=== PATIENT | female | born 1975 | race American Indian/Alaskan Native ===

== ENCOUNTER 2019-07-14 16:17 | Emergency (ER) | payer SELFPAY ==
--- NOTE | 2019-07-14 16:28 | Emergency Department Report ---
Blank Doc - Documentation Documentation: This is a 43-year-old female that presents with generalized weakness. This initial assessment/diagnostic orders/clinical plan/treatment(s) is/are subject to change based on patient's health status, clinical progression and re- assessment by fellow clinical providers in the ED. Further treatment and workup at subsequent clinical providers discretion. Patient/guardians urged not to elope from the ED as their condition may be serious if not clinically assessed and managed. Initial orders include: 1- Patient sent to [facility] for further evaluation and treatment 2- labs
[2019-07-14 16:29] VITALS: BP 139/74
[2019-07-14 17:12] LABS: Basophils # (Auto) 0.1 K/mm3 (0.0-0.1); Basophils % (Auto) 0.7 % (0.0-1.8); Eosinophils % (Auto) 0.4 % (0.0-4.3); Hematocrit 23.7 % (30.3-42.9); Hemoglobin 6.8 gm/dl (10.1-14.3); Lymphocytes # (Auto) 1.5 K/mm3 (1.2-5.4); Lymphocytes % (Auto) 18.2 % (13.4-35.0); Mean Corpuscular HGB Conc 29 % (30-34); Monocytes # (Auto) 0.7 K/mm3 (0.0-0.8); Monocytes % (Auto) 8.6 % (0.0-7.3); Platelet Count 425 K/mm3 (140-440); Red Blood Count 4.03 M/mm3 (3.65-5.03); Red Cell Distribution Width 19.1 % (13.2-15.2)
[2019-07-14 17:13] LABS: Mean Corpuscular Volume 59 fl (79-97)
[2019-07-14 17:25] LABS: BUN/Creatinine Ratio 14; Blood Urea Nitrogen 7 mg/dL (7-17); Calcium 9.2 mg/dL (8.4-10.2); Hemolysis Index 0
--- NOTE | 2019-07-14 17:49 | Emergency Department Report ---
- General Chief complaint: Weakness Stated complaint: LOW IRON Time Seen by Provider: 07/14/19 16:27 Source: patient Mode of arrival: Ambulatory Limitations: No Limitations - History of Present Illness Initial comments: 43-year-old female history of anemia presents today with generalized weakness over the last 2 weeks. Patient states she believes her iron is low. She admits that she has not been taking her iron pills. Patient denies chest pain, shortness of breath. Reports intermittent dizziness, lightheadedness. MD Complaint: generalized weakness -: week(s) (2) Location: generalized Severity: moderate Consistency: intermittent Improves with: none Worsens with: none Associated Symptoms: denies: chest pain, fever/chills, headaches, nausea/vomiting, shortness of breath - Related Data Previous Rx's Medication Instructions Recorded Last Taken Type Ferrous Sulfate [Ferrous Sulfate 324 mg PO TID #90 tablet. 07/14/19 Unknown Rx 324 MG] Allergies Allergy/AdvReac Type Severity Reaction Status Date / Time No Known Allergies Allergy Unverified 07/14/19 16:19 ED Review of Systems ROS: Stated complaint: LOW IRON Other details as noted in HPI Comment: All other systems reviewed and negative Constitutional: denies: chills, fever Respiratory: denies: shortness of breath Cardiovascular: denies: chest pain Gastrointestinal: denies: abdominal pain, nausea, vomiting, diarrhea Neurological: denies: headache ED Past Medical Hx - Past Medical History Previous Medical History?: Yes Additional medical history: anemia - Surgical History Past Surgical History?: No - Social History Smoking Status: Never Smoker Substance Use Type: None - Medications Home Medications: Home Medications Medication Instructions Recorded Confirmed Last Taken Type Ferrous Sulfate [Ferrous Sulfate 324 mg PO TID #90 tablet. 07/14/19 Unknown Rx 324 MG] ED Physical Exam - General Limitations: No Limitations General appearance: alert, in no apparent distress - Head Head exam: Present: atraumatic, normocephalic - Eye Eye exam: Present: normal appearance, PERRL, EOMI - ENT ENT exam: Present: mucous membranes moist - Neck Neck exam: Present: normal inspection - Respiratory Respiratory exam: Present: normal lung sounds bilaterally. Absent: respiratory distress - Cardiovascular Cardiovascular Exam: Present: regular rate, normal rhythm - GI/Abdominal GI/Abdominal exam: Present: soft. Absent: distended, tenderness - Extremities Exam Extremities exam: Present: normal inspection - Neurological Exam Neurological exam: Present: alert, oriented X3 - Psychiatric Psychiatric exam: Present: normal affect, normal mood - Skin Skin exam: Present: warm, dry, intact, normal color ED Course Vital Signs 07/14/19 07/14/19 16:27 17:15 Temperature 98.7 F 97.5 F L Pulse Rate 126 H 95 H Respiratory 16 15 Rate Blood Pressure 139/74 O2 Sat by Pulse 100 98 Oximetry ED Medical Decision Making - Lab Data Result diagrams: 07/14/19 16:46 07/14/19 16:38 - Medical Decision Making 43 yo F w/ anemia presents with generalized weakness x 2 weeks. Initial HR at triage was 126, however, it seems that was likely an incorrect reading as pt's HR has been in the 80s and 90s while on the monitor. Had discussion with pt regarding her Hb of 6.8. Pt denies chest pain, SOB. Only generalized weakness and intermittent lightheadedness. Spoke with pt regarding blood transfusion. Pt would like to get back on her iron pills first to see if that helps her symptoms before consenting to a blood transfusion. Will give rx for ferrous sulfate. Critical care attestation.: If time is entered above; I have spent that time in minutes in the direct care of this critically ill patient, excluding procedure time. ED Disposition Clinical Impression: Iron deficiency anemia Disposition: - TO HOME OR SELFCARE Is pt being admited?: No Condition: Stable Instructions: Iron Rich Diet (ED), Iron Deficiency Anemia (ED) Prescriptions: Ferrous Sulfate [Ferrous Sulfate 324 MG] 324 mg PO TID #90 tablet. Referrals: PRIMARY CARE, [Referring] - 3-5 Days [facility] [Provider Group] - 3-5 Days Time of Disposition: 18:00
== END 2019-07-14 18:19 | disposition home or self-care (01) ==
LOC: ED 16:17
DX: D50.9 Iron deficiency anemia, unspecified (principal)
CPT/HCPCS: 36415; 80048; 84703; 85025

== ENCOUNTER 2019-09-15 22:25 | Emergency (ER) | payer OTHER ==
[2019-09-16 02:13] LABS: Bilirubin,Urine NEG (Negative); Blood,Urine NEG (Negative); Color,Urine Yellow (Yellow); Protein,Urine <15 mg/dL mg/dL (Negative)
[2019-09-16 02:14] LABS: Bacteria,Urine 1+ /HPF (Negative); Mucus,Urine 3+ /HPF; Urobilinogen,Urine < 2.0 mg/dL (<2.0)
[2019-09-16 02:16] LABS: HCG Qualitative,Urine Negative (Negative)
--- NOTE | 2019-09-16 02:35 | Emergency Department Report ---
ED Headache HPI - General Chief Complaint: Headache Stated Complaint: PATHAK Time Seen by Provider: 09/16/19 01:27 Source: patient - History of Present Illness Initial Comments: 43-year-old female presents to ED with complaint of headache 1 week. Patient states the character of the pain and location of the pain has been varying. States it has been both right and left-sided, in the front and the back, and also in the temporal areas. Patient describes pain as sharp, squeezing, and pressure-like. She denies any fever, head injury, nausea or vomiting, or blurred vision. Patient denies history of chronic headaches. Denies any aggravating or alleviating factors. Patient states headache is currently resolved, she is currently experiencing no pain at this time. Timing/Duration: 1 week Quality: mild Associated Symptoms: denies: confusion, facial pain, fever/chills, nausea/vomiting, nasal congestion, sinus infection, stiff neck, vision changes Allergies/Adverse Reactions: Allergies No Known Allergies Allergy (Unverified 07/14/19 16:19) Home Medications: Ambulatory Orders Ferrous Sulfate [Ferrous Sulfate 324 MG] 324 mg PO TID #90 tablet. 07/14/19 Butalb/Acetamin/Caff 50-325-40 [Fioricet] 1 tab PO Q6HR PRN #10 tab 09/16/19 Naproxen [Naprosyn] 500 mg PO BID #20 tablet 09/16/19 ED Review of Systems ROS: Stated complaint: PATHAK Other details as noted in HPI Comment: All other systems reviewed and negative Constitutional: denies: chills, fever Respiratory: denies: shortness of breath Cardiovascular: denies: chest pain Gastrointestinal: denies: nausea, vomiting Genitourinary: frequency Neurological: headache. denies: weakness, numbness, paresthesias, vertigo ED Past Medical Hx - Past Medical History Previous Medical History?: No Additional medical history: anemia - Surgical History Past Surgical History?: No - Social History Smoking Status: Never Smoker Substance Use Type: None - Medications Home Medications: Home Medications Medication Instructions Recorded Confirmed Last Taken Type Ferrous Sulfate [Ferrous Sulfate 324 mg PO TID #90 tablet. 07/14/19 Unknown Rx 324 MG] Butalb/Acetamin/Caff 50-325-40 1 tab PO Q6HR PRN #10 tab 09/16/19 Unknown Rx [Fioricet] Naproxen [Naprosyn] 500 mg PO BID #20 tablet 09/16/19 Unknown Rx ED Physical Exam - General Limitations: No Limitations General appearance: alert, in no apparent distress - Head Head exam: Present: atraumatic, normocephalic - Eye Eye exam: Present: normal appearance, EOMI - ENT ENT exam: Present: mucous membranes moist - Neck Neck exam: Present: normal inspection - Respiratory Respiratory exam: Present: normal lung sounds bilaterally. Absent: respiratory distress - Cardiovascular Cardiovascular Exam: Present: regular rate, normal rhythm - GI/Abdominal GI/Abdominal exam: Absent: distended - Extremities Exam Extremities exam: Present: normal inspection - Neurological Exam Neurological exam: Present: alert, oriented X3, CN II-XII intact, normal gait. Absent: motor sensory deficit - Psychiatric Psychiatric exam: Present: normal affect, normal mood - Skin Skin exam: Present: warm, dry, intact, normal color ED Course Vital Signs 09/15/19 23:39 Temperature 98.0 F Pulse Rate 100 H Respiratory 18 Rate Blood Pressure 138/79 O2 Sat by Pulse 100 Oximetry Critical care attestation.: If time is entered above; I have spent that time in minutes in the direct care of this critically ill patient, excluding procedure time. ED Disposition Clinical Impression: Acute headache Disposition: DC-01 TO HOME OR SELFCARE Is pt being admited?: No Condition: Stable Instructions: Acute Headache (ED) Referrals: PRIMARY CARE, [Primary Care Provider] - 3-5 Days [facility] [Provider Group] - 3-5 Days Time of Disposition: 02:37
[2019-09-16 04:23] VITALS: BP 141/78
== END 2019-09-16 03:10 | disposition home or self-care (01) ==
LOC: ED 22:25
DX: R51 Headache (principal); D64.9 Anemia, unspecified
CPT/HCPCS: 81001; 81025

== ENCOUNTER 2021-12-02 18:36 | Emergency (ER) | payer SELFPAY | END 2021-12-03 04:00 | disposition left against medical advice (07) | LOC: ED 18:36 | DX: T17.228A Food in pharynx causing other injury, initial encounter (principal); Z53.21 Procedure and treatment not carried out due to patient leaving prior to being seen by health care provider; X58.XXXA Exposure to other specified factors, initial encounter; Y93.89 Activity, other specified; Y92.89 Other specified places as the place of occurrence of the external cause; Y99.8 Other external cause status ==